=== PATIENT | female | born 1985 | race Caucasian/White ===

== ENCOUNTER 2016-12-12 14:56 | Inpatient (IN) | payer BC ==
[2016-12-12] MEDS ORDERED: Oxytocin in LR* 20 UNITS/1,000 ML BAG IVPB SCH ×2 (15:00→23:00)
[2016-12-12] MEDS ORDERED: Oxytocin in LR* 20 UNITS/1,000 ML BAG IVPB ONE (15:11)
[2016-12-12 15:54] LABS: Hematocrit 39 % (35-47); Mean Corpuscular HGB Conc 33 g/dl (31-36); Mean Corpuscular Hemoglobin 30 pg (27-31); Mean Corpuscular Volume 90 fL (80-97); Mean Platelet Volume 10 um3 (7.4-10.4); Red Blood Count 4.35 10^6/ul (4.0-5.4); Red Cell Distribution Width 15 % (10.5-15); White Blood Count 12.6 10^3/ul (3.5-10.8)
--- NOTE | 2016-12-12 19:36 | PTEDU ---
Patient Name: MILAGROS HICKS MILAGROS HICKS selected video: Never Ever Shake a Baby to view on 12/12/2016 at 7:35:26 PM from [id number]
[2016-12-12] MEDS ORDERED: fentaNYL* 50 MCG/ML 2 ML VIAL (100 MCG VIAL) IV SLOW PU ONE (20:58)
[2016-12-12] MEDS ORDERED: fentaNYL* 50 MCG/ML 2 ML VIAL (100 MCG VIAL) ONE (21:01)
[2016-12-12] MEDS ORDERED: Glycerin ADULT SUPP PR PRN (22:12)
[2016-12-12] MEDS ORDERED: Varicella Virus Vaccine Live* 0.5 ML VIAL SUBCUT ONE (22:12)
[2016-12-12] MEDS ORDERED: Witch Hazel PAD* JAR TOPICAL PRN (22:12)
[2016-12-12] MEDS ORDERED: Dibucaine 1% 28.35 GM TUBE PR PRN (22:12)
[2016-12-12] MEDS ORDERED: Acetaminophen TAB* 325 MG PO PRN (22:12)
[2016-12-12] MEDS ORDERED: oxyCODONE/Acetamin 5/325 MG* TAB PO PRN (22:12)
[2016-12-12] MEDS ORDERED: Ibuprofen TAB* 600 MG ONE (23:55)
[2016-12-13] MEDS: Ibuprofen TAB* 600 MG PO PRN ×3 (06:30→18:20)
[2016-12-13 07:58] LABS: Hematocrit 34 % (35-47); Hemoglobin 10.9 g/dl (12.0-16.0); Mean Corpuscular HGB Conc 32 g/dl (31-36); Mean Corpuscular Hemoglobin 29 pg (27-31); Mean Corpuscular Volume 91 fL (80-97); Mean Platelet Volume 10 um3 (7.4-10.4); Red Blood Count 3.73 10^6/ul (4.0-5.4); Red Cell Distribution Width 15 % (10.5-15); White Blood Count 14.1 10^3/ul (3.5-10.8)
[2016-12-13] MEDS ORDERED: Simethicone CHEW TAB* 80 MG PO SCH (08:30)
[2016-12-13] MEDS: Docusate CAP* 100 MG PO SCH ×3 (08:57→20:31)
[2016-12-13] MEDS: Albuterol HFA INHALER* 8 gm MDI INH SCH ×2 (08:58→22:00)
[2016-12-13] MEDS ORDERED: Ferrous Gluconate TAB* 324 MG TAB PO SCH (09:00)
[2016-12-14] MEDS: Ibuprofen TAB* 600 MG PO PRN (01:29)
[2016-12-14] MEDS: Docusate CAP* 100 MG PO SCH (08:00)
[2016-12-14 08:12] VITALS: BP 115/60
--- NOTE | 2016-12-14 09:53 | PTEDU ---
Patient Name: MILAGROS HICKS MILAGROS HICKS selected video: BBOB: Nurturing Your Gorgeous \T\Growing Baby by to view on 12/14/2016 at 9:52:10 AM from [id number]
== END 2016-12-14 11:47 | disposition home or self-care (01) | DRG 560 ==
LOC: MCHOBOUT 14:56 → MCHOB 15:19
PROVIDERS: ADMIT Midwife; ATTEND Midwife
PROC: 10E0XZZ Delivery of Products of Conception, External Approach (ICD-10-PCS; principal; 2016-12-12)
DX: O99.824 Streptococcus B carrier state complicating childbirth (principal); O24.419 Gestational diabetes mellitus in pregnancy, unspecified control; O69.81X0 Labor and delivery complicated by cord around neck, without compression, not applicable or unspecified; Z3A.39 39 weeks gestation of pregnancy; Z37.0 Single live birth
CPT/HCPCS: 36415; 85025; 86850; 86900; 86901; A9270-GY; J3010